=== PATIENT | male | born 1945 | race Two or more races ===

== ENCOUNTER → 2017-03-07 | Outpatient (CLI) | payer MEDICARE ==
[~2017-03-07] MED LIST: AMLO1TAB15 PO; CALC600T4 PO; CELE100C PO; CITA20TA5 PO; EXEN2VIA SQ; INSU100I13 SQ; LUPRON IM
--- NOTE | 2017-03-07 14:55 | EKG ---
[facility] [address] [place] [address] Test Date: 2017-03-07 Test Time: 14:45:21 Pat Name: ZAID FOREMAN Department: Room: Gender: M Wire Walker: : 1945 Requested By: PETROS ORTIZ Order Number: [id number] Reading MD: Jenise Campoverde Measurements Intervals [place] Rate: 63 P: 30 KS: 166 QRS: -18 QRSD: 94 T: 5 QT: 428 QTc: 441 Interpretive Statements SINUS RHYTHM LEFTWARD AXIS NORMAL ECG RI6.01 No previous ECG available for comparison Electronically Signed On 03-08-2017 20:19:33 CDT by Jenise Campoverde
[2017-03-07 15:15] LABS: BASO % 1 % (0-3); EOS % 3 % (0-3); HEMOGLOBIN 11.5 g/dL (13.0-17.5); LYMPH # 2.3 x10^3/uL (1.0-4.8); LYMPH % 30 % (24-48); MEAN CORPUSCULAR HEMOGLOBIN 30 pg (25-35); MEAN CORPUSCULAR HGB CONC 33 g/dL (31-37); MEAN CORPUSCULAR VOLUME 92 fL (79-100); MONO % 10 % (0-9); NEUT % 56 % (31-73); PLATELET COUNT 262 x10^3/uL (140-400); RED BLOOD COUNT 3.82 x10^6/uL (4.30-5.70); RED CELL DISTRIBUTION WIDTH 14.5 % (11.5-14.5); WHITE BLOOD COUNT 7.6 x10^3/uL (4.0-11.0)
[2017-03-07 15:36] LABS: ALBUMIN 3.5 g/dL (3.4-5.0); ALBUMIN/GLOBULIN RATIO 0.9 (1.0-1.7); CALCIUM 8.4 mg/dL (8.5-10.1); CREATININE 0.9 mg/dL (0.7-1.3); GFR 82.7; POTASSIUM 4.7 mmol/L (3.5-5.1); TOTAL BILIRUBIN 0.3 mg/dL (0.2-1.0); TOTAL PROTEIN 7.4 g/dL (6.4-8.2)
== END | disposition home or self-care (01) ==
LOC: SURGPAT 13:43
PROVIDERS: ATTEND Neurological Surgery
DX: Z01.818 Encounter for other preprocedural examination (principal); I10 Essential (primary) hypertension; M48.06 Spinal stenosis, lumbar region
CPT/HCPCS: 36415; 80053; 85025; 87641; 93005

== ENCOUNTER 2017-03-17 07:17 | Day surgery (SDC) | payer MEDICARE ==
--- NOTE | 2017-03-16 15:16 | PREOP HP ---
DATE OF SERVICE: 03/17/2017 Jorje Deleon APRN dictating for Dr. Addi Ortiz. HISTORY OF PRESENT ILLNESS: This is a pleasant 71-year-old man who is having difficulty with low back pain and pain which radiates primarily into his left buttock. That problem has been present since May 2016. He says it began as he was recovering from left knee surgery. He rates his pain as an 8/10. Standing and walking markedly increased his pain. Sitting or lying down helps him. He has had 2 epidural steroid injections with minimal relief. He is using a cane because of severe pain and feelings of unsteadiness when he walks any distance. PAST MEDICAL HISTORY: Arthritis, cancer, hypertension, radiation treatments, diabetes. PAST SURGICAL HISTORY: Prostatectomy 2002, left knee replacement 2015. FAMILY HISTORY: Alzheimer's, cancer, diabetes, epilepsy, hypertension, migraines. SOCIAL HISTORY: Retired. . Denies substance abuse and tobacco abuse. ALLERGIES: PENICILLIN. CURRENT MEDICATIONS: Celebrex, Onglyza, amlodipine, valsartan/hydrochlorothiazide combination, Actos, Lantus, Byrudeon, Lupron, Tylenol, calcium. REVIEW OF SYSTEMS: A 12-point review of systems was obtained and is noncontributory except that mentioned above. PHYSICAL EXAMINATION: NEUROSURGERY EXAMINATION: GENERAL APPEARANCE: Alert, pleasant, in no acute distress. HEAD: Normocephalic and atraumatic. SKIN: Warm and dry. MUSCULOSKELETAL: Lumbar paraspinal muscle bulk is normal, restricted range of motion of the lumbar spine, [id number] tenderness of lower lumbar spine with palpation, normal range of motion of the lower extremities bilaterally. EXTREMITIES: No clubbing, cyanosis, or edema. NEUROLOGIC: Alert and oriented x 3, normal recent and remote memory, strength 5/5 in bilateral lower extremities, sensory was intact to light touch in bilateral lower extremities, reflexes were present and symmetric in the lower extremities bilaterally, negative straight leg raising bilaterally, ambulates with a cane. IMAGING: Reviewed. I reviewed a lumbar MRI scan. On that study, there is moderately severe lumbar spinal stenosis at L4-L5, which is in with severe compression in the lateral recesses. ASSESSMENT: Spinal stenosis, lumbar region. PLAN: My recommendation for the patient is that he undergo lumbar micro decompressive surgery at L4-L5 bilaterally. I spoke about the surgery and the risks including nerve injury and infection. He understands. He would like to go ahead. We will make the arrangements. ADDI ORTIZ MD DR: MELODY/jamison JOB#: [id number] / [id number]
[~2017-03-17] VITALS: Ht 190.5 cm; Wt 97.5 kg
[~2017-03-17 07:17] MED LIST changes: +BACITRACIN 50,000 UNIT in IV NORMAL SALINE 1000ML BAG 1,000 ML IRR ONE; +HYDROmorphone 2 MG/ML VIAL IV PRN; +IV RINGERS,LACTATED 1000ML 1,000 ML IV SCH; +LIDOCAINE 1% 1 ML SYRINGE. ID PRN; +MORPHINE SULFATE 2 MG/ML DISP.SYRIN. IV PRN; +ONDANSETRON PF 4 MG/2 ML VIAL. IV PRN; +PROCHLORPERAZINE 10 MG/2 ML VIAL. IV PRN; +VANCOMYCIN 1GM IVPB FOR OMNI 250 ML IV PRN; +fentaNYL PF VIAL 100 MCG/2 ML VIAL IV PRN
[2017-03-17] MEDS ORDERED: BUPIVAC MPF-EPI 0.5%-1:200000 30 ML VIAL. ONE (07:23)
[2017-03-17] MEDS ORDERED: KETOROLAC 60 MG/2 ML INJ FOR OR. ONE (07:23)
[2017-03-17] MEDS ORDERED: GELATIN SPONGE SIZE 100. ONE (07:23)
[2017-03-17] MEDS ORDERED: THROMBIN TOPICAL 20,000 UNIT SPRAY.SYRN KIT TP ONE (07:23)
[2017-03-17] MEDS ORDERED: PIOG30TA41 PO (07:46)
[2017-03-17] MEDS ORDERED: fentaNYL PF VIAL 250 MCG/5 ML VIAL ONE (08:34)
[2017-03-17] MEDS ORDERED: MIDAZOLAM HCL/PF 2 MG/2 ML VIAL. ONE (08:35)
[2017-03-17] MEDS ORDERED: REMIFENTANIL 2 MG VIAL. IV ONE (08:35)
[2017-03-17] MEDS ORDERED: ROCURONIUM 100 MG/10 ML VIAL. ONE (08:40)
[2017-03-17] MEDS ORDERED: PHENYLEPHRINE in 0.9% NACL PF 1 MG/10 ML DISP.SYRIN. IV ONE (09:12)
[2017-03-17] MEDS ORDERED: DEXAMETHASONE SOD PHOS 20 MG/5 ML VIAL. ONE (09:42)
[2017-03-17] MEDS ORDERED: PROPOFOL 50 ML IV ONE (09:43)
[2017-03-17] MEDS ORDERED: PROPOFOL 20 ML IV ONE (09:43)
[2017-03-17] MEDS ORDERED: ONDANSETRON PF 4 MG/2 ML VIAL. ONE (09:43)
[2017-03-17] MEDS ORDERED: LIDOCAINE 2% PF Vial for OR 5 ML VIAL. ONE (09:43)
[2017-03-17] MEDS ORDERED: DESFLURANE > 120 MINUTES IH ONE (09:43)
[2017-03-17] MEDS ORDERED: PHENYLEPHRINE 10 MG/ML VIAL. ONE ×2 (09:46)
--- NOTE | 2017-03-17 12:04 | DISCH ---
DISCHARGE INSTRUCTIONS Condition on Discharge Condition on Discharge: Stable Activity After Discharge Activity Instructions for Disc: Activity as tolerated, Avoid exertion Bathing Instructions: Shower-keep dressing dry Lifting Instructions after Dis: No heavy lifting, No pulling or pushing, Do not lift >10 pounds Driving Instructions after Dis: Do not drive Diet after Discharge Additional Diet Restrictions: resume home diet Wound Incision Care Wound/Incision Care: Ice to area for comfort Other wound/incision instructi: may remove dressing in 48 hrs if dry, leave steri strips, no soaking Contacting the DRMj after DC Call your doctor for: Concerns you may have Follow-Up Follow up with: Dr. Ortiz's nurse in 2 weeks [phone] PETROS ORTIZ MD Mar 17, 2017 12:04
[2017-03-17] MEDS ORDERED: METH-38 PO (12:09)
[2017-03-17] MEDS ORDERED: DOCU-109 PO (12:09)
[2017-03-17] MEDS ORDERED: HYDR-2762 PO (12:09)
[2017-03-17] MEDS ORDERED: HYDROcodone/APAP 7.5/325MG 1 TAB TABLET PO ONE (12:15)
[2017-03-17 13:00] VITALS: BP 116/65
--- NOTE | 2017-03-17 16:51 | OP ---
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 POSTOPERATIVE DIAGNOSIS: Severe lumbar spinal stenosis L4-L5 with neurogenic claudication. OPERATION PERFORMED: Bilateral hemilaminotomies with microdecompression of dura and nerve root, L4-L5. The operation was done with EMG monitoring, fluoroscopy, microscopic dissection. MANAGER ENDOSCOPY: BRAD Shaw assisted with surgery. She assisted with the exposure, the microdecompression as well as the closure. OPERATIVE INDICATIONS: The patient is a very pleasant 71-year-old man who developed problems with intractable back pain. The pain radiate into the left buttock and any activity increased his pain and he found relief by being largely sedentary. Epidural steroid injections gave him minimal relief, and I recommended after the imaging studies for him to undergo bilateral hemilaminotomies with decompressions. I spoke with him about the surgery and the risks. He understood and he wished to go ahead. DESCRIPTION OF PROCEDURE: Following general endotracheal anesthesia, the patient was positioned prone on the Domingo table with lumbar regions prepped and draped in standard fashion. MAXIMILIAN hose and AV impulse boots were applied for DVT prophylaxis. The microscope was draped. Fluoroscopy was draped and brought into field. Monitoring was established. Vancomycin 1 gram was given. Using fluoroscopic guidance, a midline incision was made over the L4-L5 interspace. I dissected down through the skin and subcutaneous tissue and reflected the paraspinal muscles, on the left side then placed a ____ measuring 85 mm. This was positioned and obtained fluoroscopic images, which confirmed excellent position. I brought in the microscope and using the high speed air drill, I burred down a generous hemilaminotomy. Ligamentum flavum was thickened and calcified and I gradually freed this up from the underlying dura and peeled this from medial to lateral and then trimmed this material away performing a partial foraminotomy as well. As I worked, the region became very well decompressed. The disk was flat, no diskectomy was warranted. During this time, I also used bone wax judiciously as well as bipolar cautery for any bleeding. Following this then I removed the retractor after irrigating copiously and placing Gelfoam over the hemilaminotomy site. I obtained hemostasis in the muscle and I created an exposure on the opposite side. Again after placing the micro disk retractor, I confirmed my position fluoroscopically. I brought in the high speed air drill, I burred down a generous hemilaminotomy, removed thickened ligamentum flavum and decompressed the entire region. I did work with the Kerrisons toward the midline bilaterally and did remove some of the fatty tissue from the posterior dorsal surface of the dura to fully decompress the entire area. At this point, then I removed the retractor after excellent hemostasis had been obtained and I felt that I had an excellent decompression. I irrigated copiously, obtained hemostasis again in the muscle and then I closed the wound in layers with absorbable suture and the skin was closed with 4-0 subcuticular stitch. The operation went very well and the patient was taken to recovery room in excellent condition. I was quite pleased with the surgery. PETROS ORTIZ MD DR: MELODY/jamison JOB#: [id number] / [id number]
--- NOTE | 2017-03-18 17:17 | PATHOLOGY ---
PATHOLOGY REPORT * * * * * * * * FINAL DIAGNOSIS: Segments of fibrocartilaginous, synovial, fibroadipose, and skeletal muscle tissue and bone, lumbar decompression: - Degenerative changes of fibrocartilaginous tissue. COMMENT: There is no evidence of an acute inflammatory process or malignancy. (JPM:mgr; 03/18/2017) REPORT ELECTRONICALLY SIGNED BY: Chay Delgado M.D. DATE/TIME: 03/18/2017 17:16 * * * * * * * * GROSS PATHOLOGY: Received in formalin labeled "Zaid Faust, lumbar decompression" are multiple segments of lott, rubbery, and gritty tissue admixed with bone and a moderate amount of fatty tissue. The specimen measures 2.9 x 2.3 x 1.2 cm in aggregate dimensions. The tissue is submitted representatively in cassette A1, following decalcification. (JPM; 03/17/17) INITIAL CPT CODE(S): A; 93630, 51756 Professional services [place] [address] Technical services performed by [facility] at [address] [place] [address] [address] [address]. SPECIMEN(S) RECEIVED: A.Lumbar decompression CLINICAL HISTORY: Lumbar stenosis, neurogenic claudication PATIENT: ZAID FAUST /AGE: 5 1945 (Age: 71) PATIENT #: [id number] ALT CASE #: SPECIMEN COLLECTION DATE: 03/17/2017 SPECIMEN RECEIVED DATE: 03/17/2017 [facility] - [address] [place] [address] - PHONE: [phone] * * * END OF REPORT * * *
== END 2017-03-17 13:30 | disposition home or self-care (01) ==
LOC: SURG 07:17
PROVIDERS: ATTEND Neurological Surgery
DX: M48.06 Spinal stenosis, lumbar region (principal); I10 Essential (primary) hypertension; M17.10 Unilateral primary osteoarthritis, unspecified knee; E11.9 Type 2 diabetes mellitus without complications; F32.9 Major depressive disorder, single episode, unspecified; Z86.69 Personal history of other diseases of the nervous system and sense organs; Z86.39 Personal history of other endocrine, nutritional and metabolic disease; Z85.46 Personal history of malignant neoplasm of prostate; Z87.39 Personal history of other diseases of the musculoskeletal system and connective tissue; Z96.652 Presence of left artificial knee joint; Z88.0 Allergy status to penicillin
CPT/HCPCS: 63047; 76000; 82962; 97161; J1100; J1885; J2250; J2370; J2405; J2704; J3010; J3370; J3490; J7030; J7120; J2001

== ENCOUNTER → 2017-06-01 | Outpatient (CLI) | payer MEDICARE ==
[~2017-06-01] MED LIST changes: -BACITRACIN 50,000 UNIT in IV NORMAL SALINE 1000ML BAG 1,000 ML IRR ONE; +DOCU-109 PO; +HYDR-2762 PO; -HYDROmorphone 2 MG/ML VIAL IV PRN; -IV RINGERS,LACTATED 1000ML 1,000 ML IV SCH; -LIDOCAINE 1% 1 ML SYRINGE. ID PRN; +METH-38 PO; -MORPHINE SULFATE 2 MG/ML DISP.SYRIN. IV PRN; -ONDANSETRON PF 4 MG/2 ML VIAL. IV PRN; +PIOG30TA41 PO; -PROCHLORPERAZINE 10 MG/2 ML VIAL. IV PRN; -VANCOMYCIN 1GM IVPB FOR OMNI 250 ML IV PRN; -fentaNYL PF VIAL 100 MCG/2 ML VIAL IV PRN
[2017-06-01 12:57] LABS: BASO % 1 % (0-3); EOS % 5 % (0-3); HEMATOCRIT 35.4 % (39.0-53.0); HEMOGLOBIN 11.7 g/dL (13.0-17.5); LYMPH # 2.1 x10^3/uL (1.0-4.8); LYMPH % 41 % (24-48); MEAN CORPUSCULAR HEMOGLOBIN 31 pg (25-35); MEAN CORPUSCULAR HGB CONC 33 g/dL (31-37); MEAN CORPUSCULAR VOLUME 94 fL (79-100); MONO % 11 % (0-9); NEUT % 43 % (31-73); PLATELET COUNT 313 x10^3/uL (140-400); RED BLOOD COUNT 3.78 x10^6/uL (4.30-5.70); RED CELL DISTRIBUTION WIDTH 13.7 % (11.5-14.5); WHITE BLOOD COUNT 5.2 x10^3/uL (4.0-11.0)
[2017-06-01 13:00] LABS: BILIRUBIN,URINE NEGATIVE (NEG); GLUCOSE,URINE NEGATIVE (NEG); NITRITE,URINE NEGATIVE (NEG); PROTEIN,URINE NEGATIVE (NEG-TRACE); UROBILINOGEN,URINE 0.2 mg/dL (0.2 mg/dL)
[2017-06-01 13:05] LABS: PROTHROMBIN TIME PATIENT 12.8 SEC (11.7-14.0)
[2017-06-01 13:08] LABS: ALBUMIN 3.6 g/dL (3.4-5.0); CALCIUM 9.4 mg/dL (8.5-10.1); CREATININE 1.4 mg/dL (0.7-1.3); GFR 49.7; POTASSIUM 5.6 mmol/L (3.5-5.1)
[2017-06-01 13:15] LABS: BACTERIA,URINE 0 /HPF (0-FEW); RBC,URINE 0 /HPF (0-2); SQUAMOUS EPITHELIAL CELL,UR FEW /LPF; WBC,URINE 0 /HPF (0-4)
--- NOTE | 2017-06-01 15:28 | RAD ---
EXAM: Chest 2 views. HISTORY: Preoperative risk factors. COMPARISON: 03/15/2007. FINDINGS: Frontal and lateral views of the chest are obtained. The right hemidiaphragm is moderately elevated. There are no confluent infiltrates. There is no pneumothorax or pleural effusion. The heart is not enlarged. IMPRESSION: 1. Stable moderate right hemidiaphragmatic elevation. No confluent infiltrates.
== END | disposition home or self-care (01) ==
LOC: SURGPAT 11:30
PROVIDERS: ATTEND Orthopaedic Surgery
DX: Z01.818 Encounter for other preprocedural examination (principal); M17.11 Unilateral primary osteoarthritis, right knee; Z96.651 Presence of right artificial knee joint
CPT/HCPCS: 36415; 71020; 80048; 81001; 82040; 82306; 83036; 85025; 85610; 85651; 85730; 87641